=== PATIENT | female | born 2000 | race Caucasian/White ===

== ENCOUNTER → 2021-06-24 | Day surgery (SDC) | payer BC | END | disposition home or self-care (01) | LOC: JRADIR 10:48 | PROVIDERS: ATTEND Internal Medicine Endocrinology, Diabetes & Metabolism | PROC: 0G9G3ZX Drainage of Left Thyroid Gland Lobe, Percutaneous Approach, Diagnostic (ICD-10-PCS; principal; 2021-06-24) | DX: E04.1 Nontoxic single thyroid nodule (principal) | CPT/HCPCS: 10005; 76942 ==

== ENCOUNTER 2021-12-23 19:44 | Emergency (ER) | payer BC ==
[2021-12-23] MEDS ORDERED: ALBUTEROL SO4 HFA INHALER IH ONE ×2 (19:59→20:04)
[2021-12-23 20:12] VITALS: BP 121/78; PULSE 86; TEMP 98.7; BMI 25.8
[2021-12-23] MEDS ORDERED: predniSONE 20 MG TABLET (UD) PO ONE (21:26)
[2021-12-23] MEDS ORDERED: predniSONE 20 MG TABLET (UD) ONE (21:27)
== END 2021-12-23 21:31 | disposition home or self-care (01) ==
LOC: FER 19:44
DX: J20.9 Acute bronchitis, unspecified (principal); J09.X2 Influenza due to identified novel influenza A virus with other respiratory manifestations
CPT/HCPCS: 0241U-QW; 71046-TC-FY; 87807; 99284-25; C9803-CS; U0003; U0005

== ENCOUNTER 2024-07-01 20:55 | Emergency (ER) | payer BC ==
[2024-07-01 21:01] VITALS: BP 114/67; PULSE 90; RESP 16; TEMP 98.7; BMI 25.9
[2024-07-01] MEDS ORDERED: LIDOCAINE 5% TOPICAL PATCH ONE (21:24)
[2024-07-01] MEDS ORDERED: ACETAMINOPHEN 325 MG TABLET (FP) ONE (21:24)
[2024-07-01] MEDS ORDERED: diazePAM 5 MG TABLET ONE (21:24)
[2024-07-01] MEDS: ACETAMINOPHEN 325 MG TABLET (FP) PO ONE (21:26)
[2024-07-01] MEDS: diazePAM 5 MG TABLET PO ONE (21:26)
[2024-07-01 21:42] LABS: HCG,QUALITATIVE URINE Negative
[2024-07-01] MEDS: LIDOCAINE 5% TOPICAL PATCH TP ONE (22:16)
[2024-07-01] MEDS: LIDOCAINE PATCH REMOVAL MC SCH (22:17)
[2024-07-01] MEDS ORDERED: KETOROLAC TROMETHAMINE 15 MG/ML VIAL ONE (22:41)
[2024-07-01] MEDS: KETOROLAC TROMETHAMINE 15 MG/ML VIAL IM ONE (22:44)
== END 2024-07-01 23:00 | disposition home or self-care (01) ==
LOC: FER 20:55
PROC: 3E0133Z Introduction of Anti-inflammatory into Subcutaneous Tissue, Percutaneous Approach (ICD-10-PCS; principal; 2024-07-01)
DX: S23.3XXA Sprain of ligaments of thoracic spine, initial encounter (principal); U07.1 COVID-19; X58.XXXA Exposure to other specified factors, initial encounter
CPT/HCPCS: 0241U-QW; 71046-TC-FY; 73030-TC-LT-FY; 81003; 84703; 87086; 99284-25